=== PATIENT | female | born 1960 ===

== ENCOUNTER 2024-04-17 00:57 | Outpatient (CLI) | payer BC, SELFPAY ==
[2024-04-17 13:49] LABS: ALT 30 U/L (14-59); AST 32 U/L (15-37); Albumin 4.1 g/dL (3.4-5.0); Alkaline Phosphatase 72 U/L (46-116); Anion Gap 8.9 mmol/L (3-11); BUN 19 mg/dL (7-18); Bilirubin, Total 0.7 mg/dL (0.2-1.0); CO2 28.1 mmol/L (21.0-32.0); Calculated LDL 156 mg/dL (<100); Chloride 102 mmol/L (98-107); Cholesterol 254 mg/dL (<200); Glucose 106 mg/dL (74-106); HDL Cholesterol 82 mg/dL (40-60); Potassium 4.4 mmol/L (3.5-5.1); Sodium 139 mmol/L (136-145); Total Protein 7.6 g/dL (6.4-8.2); Triglyceride 81 mg/dL (<150)
[2024-04-17 13:58] LABS: Hemoglobin A1C 5.7 % (<5.7)
[2024-04-18 09:41] LABS: Hepatitis C Ab w Rflx HCV PCR Negative (Negative)
== END 2024-04-17 00:58 | disposition home or self-care (01) ==
PROVIDERS: Visit Provider Pediatrics
DX: Z11.59 Encounter for screening for other viral diseases (principal); E78.5 Hyperlipidemia, unspecified
CPT/HCPCS: 36415; 80053; 80061; 86803; 83036

== ENCOUNTER 2024-10-22 04:33 | Outpatient (CLI) | payer BC, SELFPAY ==
[2024-10-22 10:31] LABS: Platelet Count 228 10^3/uL (130-400)
[2024-10-22 11:32] LABS: ALT 24 U/L (14-59); AST 30 U/L (15-37); Albumin 3.9 g/dL (3.4-5.0); Alkaline Phosphatase 79 U/L (46-116); Anion Gap 7.7 mmol/L (3-11); BUN 22 mg/dL (7-18); Bilirubin, Total 0.67 mg/dL (0.2-1.0); CO2 26.3 mmol/L (21.0-32.0); CREATININE 0.9 mg/dL (0.55-1.02); Calcium 9.1 mg/dL (8.5-10.1); Calculated LDL 157 mg/dL (<100); Chloride 106 mmol/L (98-107); Cholesterol 247 mg/dL (<200); Estimated GFR 72.28 (mL/min/1.73m2); Glucose 103 mg/dL (74-106); HDL Cholesterol 78 mg/dL (40-60); Sodium 140 mmol/L (136-145); Total Protein 7.5 g/dL (6.4-8.2); Triglyceride 62 mg/dL (<150)
[2024-10-22 12:26] LABS: Hemoglobin A1C 5.7 % (<5.7)
== END 2024-10-22 04:34 | disposition home or self-care (01) ==
PROVIDERS: Visit Provider Pediatrics
DX: R73.03 Prediabetes (principal); R74.01 Elevation of levels of liver transaminase levels
CPT/HCPCS: 36415; 80053; 80061; 83036; 85049

== ENCOUNTER 2025-07-16 04:18 | Outpatient (CLI) | payer BC, SELFPAY ==
[2025-07-16 08:50] LABS: HCT 38.3 % (36.0-46.0); HGB 12.7 g/dL (11.2-15.7); MCH 30.6 pg (27.0-33.0); MCHC 33.2 % (32.0-36.0); MCV 92 fL (80-95); MPV 10.1 fL (8.0-11.0); Platelet Count 227 10^3/uL (130-400); RBC 4.15 10^6/uL (3.93-5.22); RDW 13.1 % (11.7-14.6); RDW-SD 44.8 fL; WBC 3.99 10^3/uL (4.4-10.8)
[2025-07-16 09:06] LABS: Hemoglobin A1C 5.7 % (<5.7)
[2025-07-16 09:52] LABS: ALT 27 U/L (14-59); AST 23 U/L (15-37); Albumin 3.7 g/dL (3.4-5.0); Alkaline Phosphatase 75 U/L (46-116); Anion Gap 4.9 mmol/L (3-11); BUN 18 mg/dL (7-18); Bilirubin, Total 0.6 mg/dL (0.2-1.0); CO2 30.1 mmol/L (21.0-32.0); Calcium 9.2 mg/dL (8.5-10.1); Calculated LDL 153 mg/dL (<100); Chloride 106 mmol/L (98-107); Cholesterol 237 mg/dL (<200); Estimated GFR 63.30 (mL/min/1.73m2); Glucose 99 mg/dL (74-106); HDL Cholesterol 70 mg/dL (>or=50); Potassium 4.0 mmol/L (3.5-5.1); Sodium 141 mmol/L (136-145); Total Protein 7.1 g/dL (6.4-8.2); Triglyceride 72 mg/dL (<150)
== END 2025-07-16 04:19 | disposition home or self-care (01) ==
LOC: LBO 04:18
PROVIDERS: Visit Provider Pediatrics
DX: Z00.00 Encounter for general adult medical examination without abnormal findings (principal); R79.89 Other specified abnormal findings of blood chemistry; R74.01 Elevation of levels of liver transaminase levels; E78.5 Hyperlipidemia, unspecified
CPT/HCPCS: 36415; 80053; 80061; 85027; 83036